=== PATIENT | male | born 1955 | race Caucasian/White ===

== ENCOUNTER 2020-09-13 01:51 | Inpatient (IN) | payer OTHER ==
[~2020-09-13] VITALS: Ht 175.3 cm; Wt 81.6 kg
[2020-09-13 02:57] LABS: HEMOGLOBIN 12.1 gm/dl (14.0-17.5); RED BLOOD COUNT 3.64 M/UL (4.20-5.50); WHITE BLOOD COUNT 6.7 K/UL (4.5-11.0)
[2020-09-13 03:15] LABS: BUN/CREATININE RATIO 27 (0-10)
[2020-09-13] MEDS ORDERED: DULOXETINE HCL30 MG PO (09:00)
[2020-09-13] MEDS ORDERED: ASPIRIN EC81 MG PO (09:00)
[2020-09-13] MEDS ORDERED: PROTONIX 40 MG40 M1 PO (09:00)
[2020-09-13] MEDS ORDERED: GLIPIZIDE ER10 MG PO (09:01)
[2020-09-13] MEDS ORDERED: LISINOPRIL20 MG PO (09:01)
[2020-09-13] MEDS ORDERED: LEVOTHYROXINE25 MCG PO (09:01)
[2020-09-13] MEDS ORDERED: GLUCOPHAGE XR500 M1 PO (09:02)
[2020-09-13] MEDS ORDERED: LOPRESSOR 25 MG25 MG PO (09:02)
[2020-09-14 01:10] LABS: RED BLOOD COUNT 3.32 M/UL (4.20-5.50)
[2020-09-14 01:11] LABS: HEMOGLOBIN 10.1 gm/dl (14.0-17.5); WHITE BLOOD COUNT 4.8 K/UL (4.5-11.0)
--- NOTE | 2020-09-14 03:22 | NUR ---
called lab asking where my CK results where. spoke to roxana in lab and am labs were added to my single order to repeat cardiac enzy and lab ran lipid profile first which is delaying my results that i need.
[2020-09-14 03:45] LABS: BUN/CREATININE RATIO 17 (0-10)
[2020-09-14 04:13] LABS: RED BLOOD COUNT 3.62 M/UL (4.20-5.50)
[2020-09-15 05:20] LABS: HEMOGLOBIN 10.3 gm/dl (14.0-17.5); RED BLOOD COUNT 3.46 M/UL (4.20-5.50); WHITE BLOOD COUNT 4.3 K/UL (4.5-11.0)
[2020-09-15 05:42] LABS: BUN/CREATININE RATIO 17 (0-10)
== END 2020-09-16 11:00 | disposition home or self-care (01) | DRG 440 ==
LOC: ER1 01:51 → CDU 06:21 → MED SURG 4 16:17
PROVIDERS: Emergency Medicine; Internal Medicine; Physician Assistant Medical; ADMIT Internal Medicine
DX: K85.90 Acute pancreatitis without necrosis or infection, unspecified (principal); E11.65 Type 2 diabetes mellitus with hyperglycemia; I10 Essential (primary) hypertension; I25.10 Atherosclerotic heart disease of native coronary artery without angina pectoris; R77.8 Other specified abnormalities of plasma proteins; R74.01 Elevation of levels of liver transaminase levels; E83.42 Hypomagnesemia; E78.1 Pure hyperglyceridemia; E78.5 Hyperlipidemia, unspecified; K76.0 Fatty (change of) liver, not elsewhere classified; Z90.49 Acquired absence of other specified parts of digestive tract; Z95.5 Presence of coronary angioplasty implant and graft; Z98.890 Other specified postprocedural states; Z88.8 Allergy status to other drugs, medicaments and biological substances; Z79.4 Long term (current) use of insulin; E03.9 Hypothyroidism, unspecified; Z20.822 Contact with and (suspected) exposure to COVID-19
CPT/HCPCS: 36415; 80053; 80061; 81001; 82550; 82553; 82962; 83690; 83735; 84478; 84484; 85025; 85027; 85610; 85730; 87086; 93005; 96374; 96375; 96376; 99285; J1644; J1885; J2270; J2405; J3475; J7030; Q9967; U0002